=== PATIENT | female | born 1955 | race African-American/Black ===

== ENCOUNTER 2016-08-19 16:23 | Emergency (ER) | payer OTHER, MEDICARE ==
[~2016-08-19] VITALS: Ht 160 cm; Wt 77.0 kg
[~2016-08-19 16:23] MED LIST: AMLO5TAB22 PO; CHLO.12%30 SSP; CLON.1 PO; NAPR-571 PO; PENI500T PO
[2016-08-19 16:26] VITALS: BP 201/99; PULSE 77; RESP 16; TEMP 97.7; O2SAT 98
[2016-08-19 17:28] VITALS: BP 235/113; PULSE 64; RESP 14; TEMP 99.4; O2SAT 97
[2016-08-19] MEDS ORDERED: Amlodipine Besylate PO (17:34)
[2016-08-19] MEDS ORDERED: CHLO.12%30 SWISH-SPIT (17:35)
[2016-08-19] MEDS ORDERED: CLON0.1T PO (17:35)
[2016-08-19] MEDS ORDERED: cloNIDine HCL 0.2 MG TAB PO ONE (17:45)
[2016-08-19] MEDS ORDERED: ACETAMINOPHEN 325 MG TAB PO ONE (17:45)
[2016-08-19] MEDS ORDERED: amLODIPine BESYLATE 5 MG TAB PO ONE (17:45)
[2016-08-19] MEDS ORDERED: CYCLOBENZAPRINE HCL 10 MG TAB PO ONE (17:45)
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
[2016-08-19 18:43] VITALS: BP 246/124
[2016-08-19] MEDS ORDERED: hydrALAZINE HCL 25 MG TAB PO ONE (19:00)
[2016-08-19 19:45] VITALS: BP 214/102; PULSE 70; RESP 18; O2SAT 97
[2016-08-19] MEDS ORDERED: CLON0.2T PO (19:53)
[2016-08-19] MEDS ORDERED: AMLO5TAB2 PO (19:53)
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
== END 2016-08-19 20:40 | disposition home or self-care (01) ==
LOC: NEPD 16:23
DX: Z04.1 Encounter for examination and observation following transport accident (principal); I10 Essential (primary) hypertension; M54.2 Cervicalgia; R51 Headache; M54.9 Dorsalgia, unspecified; V43.52XA Car driver injured in collision with other type car in traffic accident, initial encounter; Y93.89 Activity, other specified; Y92.410 Unspecified street and highway as the place of occurrence of the external cause; Y99.8 Other external cause status
CPT/HCPCS: 70450; 72072; 72125; 99284; L0150